=== PATIENT | female | born 1975 | race African-American/Black ===

== ENCOUNTER 2019-11-23 16:59 | Inpatient (IN) | payer MEDICARE, OTHER ==
[~2019-11-23] VITALS: Ht 160 cm; Wt 77.6 kg
[2019-11-23] MEDS: ENOXAPARIN 40MG/0.4ML SYR SUBCUT SCH (06:00)
[2019-11-23 18:06] LABS: BASOPHILS % 1.3 % (0.0-2.0); EOSINOPHILS % 1.3 % (0.0-5.0); HEMATOCRIT. 34.9 % (36.0-48.0); HEMOGLOBIN. 11.5 g/dL (12.0-16.0); LYMPHOCYTES % 18.4 % (20.0-50.0); MEAN CORPUSCULAR HEMOGLOBIN 28.2 pg (28.0-32.0); MEAN CORPUSCULAR VOLUME 85.8 fL (81.0-99.0); MEAN PLATELET VOLUME 9.3 fl (7.4-10.4); MONOCYTES % 7.1 % (2.0-8.0); NEUTROPHILS % 71.9 % (40.0-76.0); PLATELET 125 x1000/uL (130-400); RED BLOOD CELL COUNT 4.07 mill/uL (4.2-5.4); RED CELL DISTRIBUTION WIDTH 19.4 % (11.6-14.6)
[2019-11-23 18:24] LABS: CHLORIDE 108 mEq/L (98-107)
[2019-11-23] MEDS ORDERED: CLONIDINE 0.1MG TABLET PO ONE (19:45)
[2019-11-23] MEDS ORDERED: GUAIFENESIN 200MG/10ML SUGAR FREE UDC PO PRN (23:00)
[2019-11-23] MEDS ORDERED: MAGNESIUM/ALUMINUM HYDROXIDE/SIMETHICONE 30ML UDC PO PRN (23:00)
[2019-11-23] MEDS ORDERED: ACETAMINOPHEN 325MG TABLET PO PRN (23:00)
[2019-11-23] MEDS ORDERED: LORAZEPAM 2MG/ML CPJ IV PRN (23:00)
[2019-11-23] MEDS ORDERED: HYDROCODONE/ACETAMINOPHEN 10/325MG TABLET PO PRN (23:00)
[2019-11-23] MEDS ORDERED: ONDANSETRON HCL 4MG/2ML INJ IV PRN (23:00)
[2019-11-23] MEDS ORDERED: IPRATROPIUM/ALBUTEROL 0.5-3(2.5)MG/3ML NEB HHN PRN (23:00)
[2019-11-23] MEDS ORDERED: DIPHENHYDRAMINE 50MG/ML VIAL IV PRN (23:00)
[2019-11-23] MEDS ORDERED: DOCUSATE SODIUM 100MG CAPSULE PO PRN (23:00)
[2019-11-23] MEDS: CLONIDINE 0.1MG TABLET PO PRN (23:19)
[2019-11-24 04:05] VITALS: BP 185/107
[2019-11-24] MEDS ORDERED: ASPI325T85 MT (04:19)
[2019-11-24] MEDS ORDERED: METO100T16 PO (04:19)
[2019-11-24] MEDS ORDERED: MINO2.5T2 PO (04:20)
[2019-11-24] MEDS ORDERED: CLON0.2T MT (04:22)
[2019-11-24] MEDS: SODIUM CHLORIDE 0.9% INJ 3ML FLUSH IVF SCH ×3 (06:29→21:59)
[2019-11-24 08:00] VITALS: BP 167/93
[2019-11-24 08:25] LABS: BASOPHILS % 0.6 % (0.0-2.0); EOSINOPHILS % 2.2 % (0.0-5.0); HEMOGLOBIN. 10.6 g/dL (12.0-16.0); LYMPHOCYTES % 22.3 % (20.0-50.0); MEAN CORPUSCULAR HEMOGLOBIN 28.4 pg (28.0-32.0); MEAN CORPUSCULAR VOLUME 85.9 fL (81.0-99.0); MEAN PLATELET VOLUME 9.4 fl (7.4-10.4); MONOCYTES % 8.2 % (2.0-8.0); NEUTROPHILS % 66.7 % (40.0-76.0); PLATELET 110 x1000/uL (130-400); RED BLOOD CELL COUNT 3.73 mill/uL (4.2-5.4)
[2019-11-24 09:29] LABS: CHLORIDE 109 mEq/L (98-107)
[2019-11-24 12:00] VITALS: BP 166/92
[2019-11-24] MEDS: CLONIDINE 0.2MG TABLET PO SCH ×2 (13:31→21:59)
[2019-11-24] MEDS: MINOXIDIL 2.5MG TABLET PO SCH ×2 (13:31→17:00)
[2019-11-24 16:00] VITALS: BP 143/82
[2019-11-24 20:00] VITALS: BP 154/78
[2019-11-24] MEDS: ENOXAPARIN 40MG/0.4ML SYR SUBCUT SCH (22:00)
[2019-11-25] VITALS: BP 118/65
[2019-11-25] MEDS: CLONIDINE 0.1MG TABLET PO PRN (02:44)
[2019-11-25 04:00] VITALS: BP 155/76
[2019-11-25] MEDS: CLONIDINE 0.2MG TABLET PO SCH (05:55)
[2019-11-25] MEDS: SODIUM CHLORIDE 0.9% INJ 3ML FLUSH IVF SCH (05:55)
[2019-11-25 08:00] VITALS: BP 144/78
[2019-11-25] MEDS: MINOXIDIL 2.5MG TABLET PO SCH ×3 (09:00→10:10)
== END 2019-11-25 11:45 | disposition home or self-care (01) | DRG 640 ==
LOC: ER 16:59 → 5WST 20:33 → ENRESERV 23:39
PROVIDERS: ADMIT Internal Medicine; ATTEND Internal Medicine
PROC: 5A1D70Z Performance of Urinary Filtration, Intermittent, Less than 6 Hours Per Day (ICD-10-PCS; principal; 2019-11-24)
DX: E87.2 Acidosis (principal); N18.6 End stage renal disease; I13.2 Hypertensive heart and chronic kidney disease with heart failure and with stage 5 chronic kidney disease, or end stage renal disease; E44.1 Mild protein-calorie malnutrition; I50.9 Heart failure, unspecified; D69.6 Thrombocytopenia, unspecified; D64.9 Anemia, unspecified; Z99.2 Dependence on renal dialysis; Z79.899 Other long term (current) drug therapy; Z68.30 Body mass index [BMI] 30.0-30.9, adult
CPT/HCPCS: 36415; 71045; 80053; 84484; 85025; 93005; 99285; J1650

== ENCOUNTER 2020-08-26 12:46 | Inpatient (IN) | payer MEDICARE, OTHER ==
[~2020-08-26] VITALS: Ht 160 cm; Wt 72.4 kg
[~2020-08-26 12:46] MED LIST: ASPI-867 MT; CLON0.2T MT; METO100T16 PO; MINO2.5T2 PO
[2020-08-26 14:02] LABS: BASOPHILS % 0.9 % (0.0-2.0); EOSINOPHILS % 3.9 % (0.0-5.0); HEMATOCRIT. 29.9 % (36.0-48.0); HEMOGLOBIN. 10.3 g/dL (12.0-16.0); LYMPHOCYTES % 17.9 % (20.0-50.0); MEAN CORPUSCULAR HEMOGLOBIN 29.1 pg (28.0-32.0); MEAN CORPUSCULAR VOLUME 84.8 fL (81.0-99.0); MEAN PLATELET VOLUME 8.9 fl (7.4-10.4); MONOCYTES % 6.7 % (2.0-8.0); NEUTROPHILS % 70.6 % (40.0-76.0); PLATELET 212 x1000/uL (130-400); RED BLOOD CELL COUNT 3.53 mill/uL (4.2-5.4); RED CELL DISTRIBUTION WIDTH 17.5 % (11.6-14.6)
[2020-08-26 14:08] LABS: CHLORIDE 108 mEq/L (98-107)
[2020-08-26 15:08] LABS: *AMPHETAMINES SCREEN URINE NEGATIVE (NEGATIVE); *BARBITURATES SCREEN URINE NEGATIVE (NEGATIVE); *BENZODIAZEPINES SCREEN URINE NEGATIVE (NEGATIVE); *COCAINE SCREEN URINE NEGATIVE (NEGATIVE); METHADONE URINE SCREEN NEGATIVE (NEGATIVE); OPIATES URINE SCREEN NEGATIVE (NEGATIVE); PHENCYCLIDINE URINE SCREEN NEGATIVE (NEGATIVE)
[2020-08-26 15:28] LABS: CANNABINOID URINE SCREEN PRESUMTIVE POSITIVE (NEGATIVE)
[2020-08-26] MEDS ORDERED: CLONIDINE 0.3MG TABLET PO ONE (15:30)
[2020-08-26] MEDS: METOPROLOL TARTRATE 100MG TABLET PO ONE ×2 (16:07→16:08)
[2020-08-26 17:19] LABS: HEPATITIS B SURFACE ANTIGEN NEGATIVE
[2020-08-26 17:49] LABS: HEPATITIS A AB IGM NEGATIVE (NEGATIVE)
[2020-08-26] MEDS ORDERED: DOCUSATE SODIUM 100MG CAPSULE PO PRN (20:00)
[2020-08-26] MEDS ORDERED: HYDROCODONE/ACETAMINOPHEN 5/325MG TABLET PO PRN (20:00)
[2020-08-26] MEDS ORDERED: DIPHENHYDRAMINE 50MG/ML VIAL IV PRN (20:00)
[2020-08-26] MEDS ORDERED: GUAIFENESIN 200MG/10ML SUGAR FREE UDC PO PRN (20:00)
[2020-08-26] MEDS ORDERED: ACETAMINOPHEN 325MG TABLET PO PRN (20:00)
[2020-08-26] MEDS ORDERED: MAGNESIUM/ALUMINUM HYDROXIDE/SIMETHICONE 30ML UDC PO PRN (20:00)
[2020-08-26] MEDS ORDERED: ONDANSETRON HCL 4MG/2ML INJ IV PRN (20:00)
[2020-08-26 21:00] VITALS: BP 183/107
[2020-08-26] MEDS: AMLODIPINE 10MG TABLET PO SCH ×2 (21:23→21:25)
[2020-08-26] MEDS: CLONIDINE 0.1MG TABLET PO PRN (21:31)
[2020-08-27] VITALS (8 sets, daily range): BP systolic 145–187; BP diastolic 84–107
[2020-08-27] MEDS: CLONIDINE 0.1MG TABLET PO PRN (04:45)
[2020-08-27] MEDS ORDERED: METOPROLOL TARTRATE 100MG TABLET PO SCH (12:15)
[2020-08-27] MEDS: MINOXIDIL 2.5MG TABLET PO SCH ×2 (13:08→17:28)
[2020-08-27] MEDS: CLONIDINE 0.2MG TABLET PO SCH ×2 (13:08→17:28)
[2020-08-27] MEDS ORDERED: IPRATROPIUM/ALBUTEROL 0.5-3(2.5)MG/3ML NEB HHN PRN (14:45)
== END 2020-08-27 19:06 | disposition left against medical advice (07) | DRG 291 ==
LOC: ER 12:46 → 5WST 15:18 → ENRESERV 19:28 → CANRESERV 19:28 → ENRESERV 20:01
PROVIDERS: ADMIT Hospitalist; ATTEND Hospitalist
PROC: 5A1D70Z Performance of Urinary Filtration, Intermittent, Less than 6 Hours Per Day (ICD-10-PCS; principal; 2020-08-27)
DX: I13.2 Hypertensive heart and chronic kidney disease with heart failure and with stage 5 chronic kidney disease, or end stage renal disease (principal); I50.33 Acute on chronic diastolic (congestive) heart failure; N18.6 End stage renal disease; E87.5 Hyperkalemia; F17.200 Nicotine dependence, unspecified, uncomplicated; D64.9 Anemia, unspecified; Z99.2 Dependence on renal dialysis; Z79.899 Other long term (current) drug therapy; Z79.82 Long term (current) use of aspirin; Z82.49 Family history of ischemic heart disease and other diseases of the circulatory system; F12.90 Cannabis use, unspecified, uncomplicated
CPT/HCPCS: 36415; 71045; 80053; 80305; 83880; 84484; 85025; 86705; 86709; 86803; 87340; 93005; 99285

== ENCOUNTER 2020-11-16 23:44 | Inpatient (IN) | payer MEDICARE ==
[~2020-11-16] VITALS: Ht 160 cm; Wt 71.3 kg
[2020-11-17 01:39] LABS: BASOPHILS % 1.4 % (0.0-2.0); EOSINOPHILS % 2.7 % (0.0-5.0); HEMATOCRIT. 33.3 % (36.0-48.0); HEMOGLOBIN. 11.6 g/dL (12.0-16.0); LYMPHOCYTES % 16.6 % (20.0-50.0); MEAN CORPUSCULAR HEMOGLOBIN 29.1 pg (28.0-32.0); MEAN CORPUSCULAR VOLUME 83.7 fL (81.0-99.0); MEAN PLATELET VOLUME 9.8 fl (7.4-10.4); MONOCYTES % 7.7 % (2.0-8.0); NEUTROPHILS % 71.6 % (40.0-76.0); PLATELET 420 x1000/uL (130-400); RED BLOOD CELL COUNT 3.98 mill/uL (4.2-5.4); RED CELL DISTRIBUTION WIDTH 17.3 % (11.6-14.6)
[2020-11-17 01:47] LABS: HCG SCREEN NEGATIVE
[2020-11-17 03:09] LABS: CHLORIDE 110 mEq/L (98-107)
[2020-11-17] MEDS ORDERED: HYDRALAZINE 20MG/ML VIAL IV ONE (03:45)
[2020-11-17] MEDS ORDERED: AMLODIPINE 10MG TABLET PO ONE (04:30)
[2020-11-17] MEDS ORDERED: CLONIDINE 0.2MG TABLET PO ONE (04:30)
[2020-11-17] MEDS ORDERED: GUAIFENESIN 200MG/10ML SUGAR FREE UDC PO PRN (09:45)
[2020-11-17] MEDS ORDERED: DIPHENHYDRAMINE 50MG/ML VIAL IV PRN (09:45)
[2020-11-17] MEDS ORDERED: MAGNESIUM/ALUMINUM HYDROXIDE/SIMETHICONE 30ML UDC PO PRN (09:45)
[2020-11-17] MEDS ORDERED: NITROGLYCERIN 0.4MG TABLET SL SL PRN (09:45)
[2020-11-17] MEDS ORDERED: LORAZEPAM 0.5MG TABLET PO PRN (09:45)
[2020-11-17] MEDS ORDERED: ACETAMINOPHEN 325MG TABLET PO PRN ×2 (09:45)
[2020-11-17] MEDS ORDERED: ENOXAPARIN 40MG/0.4ML SYR SUBCUT SCH (09:45)
[2020-11-17] MEDS ORDERED: ONDANSETRON HCL 4MG/2ML INJ IV PRN (09:45)
[2020-11-17] MEDS ORDERED: DOCUSATE SODIUM 100MG CAPSULE PO PRN (09:45)
[2020-11-17] MEDS ORDERED: IPRATROPIUM/ALBUTEROL 0.5-3(2.5)MG/3ML NEB NEB PRN (09:45)
[2020-11-17 10:00] VITALS: BP 224/116
[2020-11-17] MEDS: FAMOTIDINE 20MG TABLET PO SCH (10:49)
[2020-11-17] MEDS: METOPROLOL TARTRATE 25MG TABLET PO SCH ×2 (10:49→20:38)
[2020-11-17] MEDS: MINOXIDIL 2.5MG TABLET PO SCH ×2 (10:50→20:38)
[2020-11-17] MEDS: ASPIRIN 325MG EC TABLET PO SCH (10:50)
[2020-11-17] MEDS: ENOXAPARIN 30MG/0.3ML SYR SUBCUT SCH (10:56)
[2020-11-17 11:16] VITALS: BP 224/116
[2020-11-17 12:00] VITALS: BP 215/99
[2020-11-17 14:31] LABS: HEPATITIS B SURFACE ANTIGEN NEGATIVE
[2020-11-17 16:00] VITALS: BP 201/103
[2020-11-17 20:00] VITALS: BP 195/109
[2020-11-17] MEDS: CLONIDINE 0.1MG TABLET PO PRN (20:38)
[2020-11-17] MEDS ORDERED: ZOLPIDEM TARTRATE 5MG TABLET PO PRN (21:00)
[2020-11-18] VITALS: BP 158/96
[2020-11-18 04:00] VITALS: BP 198/90
[2020-11-18] MEDS: CLONIDINE 0.1MG TABLET PO PRN ×2 (05:12→11:04)
[2020-11-18 08:00] VITALS: BP 184/97
[2020-11-18] MEDS: ASPIRIN 325MG EC TABLET PO SCH (08:36)
[2020-11-18] MEDS: MINOXIDIL 2.5MG TABLET PO SCH ×2 (08:36→21:09)
[2020-11-18] MEDS: METOPROLOL TARTRATE 25MG TABLET PO SCH ×2 (08:36→21:10)
[2020-11-18] MEDS: FAMOTIDINE 20MG TABLET PO SCH (08:36)
[2020-11-18] MEDS: ENOXAPARIN 30MG/0.3ML SYR SUBCUT SCH (08:37)
[2020-11-18] MEDS: LOSARTAN POTASSIUM 50 MG TABLET PO SCH (10:00)
[2020-11-18 12:00] VITALS: BP 185/103
[2020-11-18] MEDS ORDERED: MINOXIDIL 2.5MG TABLET PO NR (14:00)
[2020-11-18 15:57] VITALS: BP 158/84
[2020-11-18 20:00] VITALS: BP 189/94
[2020-11-19 00:28] VITALS: BP 160/82
[2020-11-19 04:00] VITALS: BP 149/68
[2020-11-19 08:00] VITALS: BP 229/119
[2020-11-19] MEDS: ASPIRIN 325MG EC TABLET PO SCH (08:43)
[2020-11-19] MEDS: FAMOTIDINE 20MG TABLET PO SCH (08:43)
[2020-11-19] MEDS: LOSARTAN POTASSIUM 50 MG TABLET PO SCH (08:44)
[2020-11-19] MEDS: METOPROLOL TARTRATE 25MG TABLET PO SCH ×2 (08:45→20:06)
[2020-11-19] MEDS: ENOXAPARIN 30MG/0.3ML SYR SUBCUT SCH (08:45)
[2020-11-19] MEDS: MINOXIDIL 2.5MG TABLET PO SCH ×2 (08:45→20:04)
[2020-11-19 12:00] VITALS: BP 204/94
[2020-11-19] MEDS: CLONIDINE 0.1MG TABLET PO PRN ×2 (14:12→20:06)
[2020-11-19 16:00] VITALS: BP 185/95
== END 2020-11-19 20:15 | disposition left against medical advice (07) | DRG 291 ==
LOC: ER 23:44 → EDBEDREQ 11-17 01:01 → 6WST 11-17 04:21 → EDBEDREQTM 11-17 04:23 → EDBEDREQ 11-17 04:23 → ENRESERV 11-17 07:35
PROVIDERS: ADMIT Internal Medicine; ATTEND Internal Medicine
PROC: 5A1D70Z Performance of Urinary Filtration, Intermittent, Less than 6 Hours Per Day (ICD-10-PCS; 2020-11-17)
PROC: 5A1D70Z Performance of Urinary Filtration, Intermittent, Less than 6 Hours Per Day (ICD-10-PCS; principal; 2020-11-19)
DX: I13.2 Hypertensive heart and chronic kidney disease with heart failure and with stage 5 chronic kidney disease, or end stage renal disease (principal); J96.00 Acute respiratory failure, unspecified whether with hypoxia or hypercapnia; I50.33 Acute on chronic diastolic (congestive) heart failure; N18.6 End stage renal disease; E44.1 Mild protein-calorie malnutrition; I16.1 Hypertensive emergency; D63.8 Anemia in other chronic diseases classified elsewhere; R74.01 Elevation of levels of liver transaminase levels; E83.51 Hypocalcemia; Z20.822 Contact with and (suspected) exposure to COVID-19; Z99.2 Dependence on renal dialysis; Z82.49 Family history of ischemic heart disease and other diseases of the circulatory system; Z91.14 Patient's other noncompliance with medication regimen; Z88.8 Allergy status to other drugs, medicaments and biological substances; Z79.82 Long term (current) use of aspirin; Z79.899 Other long term (current) drug therapy; Z68.27 Body mass index [BMI] 27.0-27.9, adult
CPT/HCPCS: 36415; 71045; 80053; 80061; 83036; 83880; 84484; 84703; 85025; 86705; 86709; 86803; 87340; 93005; 93970; 99291; A6261; J0360; J1650; U0003; U0005

== ENCOUNTER 2023-03-23 22:12 | Emergency (ER) | payer OTHER, MEDICARE ==
[~2023-03-23] VITALS: Ht 160 cm; Wt 57.0 kg
[2023-03-23 22:20] VITALS: BP 181/131; PULSE 97; RESP 16; TEMP 98.2; O2SAT 98
[2023-03-23 23:03] LABS: EOSINOPHILS % 1.3 % (0.0-5.0); HEMATOCRIT. 29.5 % (36.0-48.0); HEMOGLOBIN. 9.2 g/dL (12.0-16.0); LYMPHOCYTES % 16.4 % (20.0-50.0); MEAN CORPUSCULAR HEMOGLOBIN 29.8 pg (28.0-32.0); MEAN CORPUSCULAR HGB CONC 31.3 g/dL (31.0-37.0); MEAN CORPUSCULAR VOLUME 95.3 fL (81.0-99.0); MEAN PLATELET VOLUME 8.3 fl (7.4-10.4); NEUTROPHILS % 72.3 % (40.0-76.0); PLATELET 179 x1000/uL (130-400); WHITE BLOOD COUNT 6.7 x1000/uL (4.5-11.0)
[2023-03-23 23:12] LABS: ALANINE AMINOTRANSFERASE < 7 IU/L (10-49); ALBUMIN 3.8 g/dL (3.2-4.8); ASPARTATE AMINOTRANSFERASE 15 IU/L (<34); BILIRUBIN TOTAL 0.9 mg/dL (0.1-1.0); CALCIUM 9.6 mg/dL (8.7-10.4); CARBON DIOXIDE 20 mEq/L (21-32); CHLORIDE 97 mEq/L (98-107); GLUCOSE 96 mg/dL (70-105); POTASSIUM 5.8 mEq/L (3.5-5.1); PROTEIN TOTAL 7.4 g/dL (6.0-8.3); SODIUM 133 mEq/L (136-145); UREA NITROGEN BLOOD 58 mg/dL (9-23)
[2023-03-23 23:13] LABS: TROPONIN I HIGH SENSITIVITY 46 ng/L (3.0-34)
[2023-03-23 23:14] LABS: CREATININE 8.8 mg/dL (0.6-1.0)
== END 2023-03-24 01:43 | disposition left against medical advice (07) ==
LOC: ER 22:26
DX: R68.89 Other general symptoms and signs (principal); Z53.21 Procedure and treatment not carried out due to patient leaving prior to being seen by health care provider
CPT/HCPCS: 36415; 71045; 80053; 84484; 85025; 93005; 99281